=== PATIENT | male | born 1995 | race Caucasian/White ===

== ENCOUNTER → 2017-10-23 | Outpatient (CLI) | payer OTHER | LOC: LAB 11:26 | PROVIDERS: ATTEND Orthopaedic Surgery | DX: M25.562 Pain in left knee (principal); M85.68 Other cyst of bone, other site | CPT/HCPCS: 36415; 82565 ==

== ENCOUNTER 2018-01-22 10:38 | Emergency (ER) | payer OTHER ==
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
[2018-01-22 11:00] VITALS: BP 119/79
== END 2018-01-22 11:14 | disposition home or self-care (01) ==
LOC: ER 11:08
DX: S06.0X0A Concussion without loss of consciousness, initial encounter (principal); V48.5XXA Car driver injured in noncollision transport accident in traffic accident, initial encounter
CPT/HCPCS: 99281